=== PATIENT | male | born 1990 | race African-American/Black ===

== ENCOUNTER 2019-12-31 09:38 | Emergency (ER) | payer OTHER ==
[~2019-12-31] VITALS: Ht 182.9 cm; Wt 118.2 kg
[2019-12-31] MEDS ORDERED: IV NORMAL SALINE 1,000ML 1,000 ML IV SCH (09:55)
[2019-12-31] MEDS ORDERED: ONDANSETRON PF 4 MG/2 ML VIAL. IVP ONE (10:00)
[2019-12-31] MEDS ORDERED: ONDANSETRON PF 4 MG/2 ML VIAL. ONE (10:00)
--- NOTE | 2019-12-31 10:00 | PHYS DOC ---
Adult General Chief Complaint Chief Complaint: WEAKNESS/GENERALIZED HPI HPI Patient is a 29-year-old male who presents with complaint of abdominal pain with nausea and vomiting. Patient is also had loose stools. Patient states that symptoms started yesterday morning. He states that the abdominal pain actually started this morning at about 4 AM. Currently rates the pain is mild but states that earlier it was much worse. Patient does indicate that he had been drinking on night. He denies any chest pain or shortness breath. Patient also indicates that he has had some cramping in his muscles. Patient denies any fever.[] Review of Systems Review of Systems Constitutional: Denies fever or chills [] Respiratory: Denies cough or shortness of breath [] Cardiovascular: No additional information not addressed in HPI [] GI: Complains of abdominal pain with nausea, vomiting and diarrhea [] Integument: Denies rash or skin lesions [] Neurologic: Denies headache, focal weakness or sensory changes [] All other systems were reviewed and found to be within normal limits, except as documented in this note. Physical Exam Physical Exam Constitutional: Well developed, well nourished, no acute distress, non-toxic appearance. [] HENT: Normocephalic, atraumatic, bilateral external ears normal, oropharynx moist, no oral exudates, nose normal. [] Eyes: PERRLA, EOMI, conjunctiva normal, no discharge. [] Neck: Normal range of motion, no tenderness, supple. [] Cardiovascular: Regular rate and rhythm[] Lungs & Thorax: Bilateral breath sounds clear to auscultation [] Abdomen: Bowel sounds normal, soft, with mild epigastric tenderness. [] Skin: Warm, dry, no erythema, no rash. [] Extremities: No tenderness, no cyanosis, no clubbing, ROM intact, no edema. [] Neurologic: Alert and oriented X 3, no focal deficits noted. [] EKG EKG [] Radiology/Procedures Radiology/Procedures [] Course & Med Decision Making Course & Med Decision Making Pertinent Labs and Imaging studies reviewed. (See chart for details) [] Dragon Disclaimer Dragon Disclaimer This electronic medical record was generated, in whole or in part, using a voice recognition dictation system. Departure Departure: Impression: Primary Impression: Gastroenteritis Disposition: 01 HOME, SELF-CARE Condition: STABLE Referrals: PCP,NO (PCP) Patient Instructions: Viral Gastroenteritis Scripts Ondansetron (ONDANSETRON ODT) 4 Mg Tab.rapdis 1 TAB PO PRN Q6-8HRS PRN for NAUSEA, #12 TAB Prov: SHIV MITCHELL Jr. DO 12/31/19 Diphenoxylate Hcl/Atropine (LOMOTIL TABLET) 1 Each Tablet 1 TAB PO TID PRN for DIARRHEA, #15 TAB Prov: SHIV MITCHELL Jr. DO 12/31/19 SHIV MITCHELL Jr. DO Dec 31, 2019 10:00
[2019-12-31 10:14] VITALS: BP 129/72
[2019-12-31 10:24] LABS: BASO # 0.1 x10^3/uL (0.0-0.2); BASO % 1 % (0-3); EOS # 0.6 x10^3/uL (0.0-0.7); EOS % 6 % (0-3); HEMATOCRIT 41.9 % (39.0-53.0); HEMOGLOBIN 14.6 g/dL (13.0-17.5); LYMPH # 1.4 x10^3/uL (1.0-4.8); LYMPH % 14 % (24-48); MEAN CORPUSCULAR HEMOGLOBIN 31 pg (25-35); MEAN CORPUSCULAR HGB CONC 35 g/dL (31-37); MEAN CORPUSCULAR VOLUME 89 fL (79-100); MONO # 0.7 x10^3/uL (0.0-1.1); MONO % 7 % (0-9); NEUT # 7.5 x10^3uL (1.8-7.7); NEUT % 73 % (31-73); PLATELET COUNT 263 x10^3/uL (140-400); RED BLOOD COUNT 4.71 x10^6/uL (4.30-5.70); RED CELL DISTRIBUTION WIDTH 14.1 % (11.5-14.5); WHITE BLOOD COUNT 10.3 x10^3/uL (4.0-11.0)
[2019-12-31 10:53] LABS: CALCIUM 8.9 mg/dL (8.5-10.1); GFR 106.2; POTASSIUM 3.9 mmol/L (3.5-5.1)
[2019-12-31 11:00] LABS: ALBUMIN 3.7 g/dL (3.4-5.0); ALBUMIN/GLOBULIN RATIO 1.2 (1.0-1.7); MAGNESIUM 1.6 mg/dL (1.8-2.4); TOTAL BILIRUBIN 0.5 mg/dL (0.2-1.0); TOTAL PROTEIN 6.8 g/dL (6.4-8.2)
[2019-12-31] MEDS ORDERED: DIPH1TAB PO (11:45)
[2019-12-31] MEDS ORDERED: ONDA4TAB12 PO (11:45)
== END 2019-12-31 12:00 | disposition home or self-care (01) ==
LOC: ER 09:38
DX: K52.9 Noninfective gastroenteritis and colitis, unspecified (principal)
CPT/HCPCS: 36415; 80053; 83690; 83735; 85025; 96361; 96374; 99283; J2405; J7030

== ENCOUNTER 2020-07-27 17:15 | Emergency (ER) | payer OTHER ==
[~2020-07-27] VITALS: Ht 182.9 cm; Wt 118.2 kg
[~2020-07-27 17:15] MED LIST: DIPH1TAB PO; ONDA4TAB12 PO
--- NOTE | 2020-07-27 17:45 | EKG ---
[facility] [address] [place] [id number] Test Date: 2020-07-27 Test Time: 17:35:35 Pat Name: DONOVAN SAMS Department: Room: Gender: M Tutoring Assistant: : 1990 Requested By: ADEN LARSON Order Number: [id number] Reading MD: Gerhard Torrez MD Measurements Intervals [place] Rate: 90 P: 60 NM: 146 QRS: 65 QRSD: 90 T: 41 QT: 322 QTc: 398 Interpretive Statements SINUS RHYTHM Electronically Signed On 07-29-2020 14:14:31 CDT by Gerhard Torrez MD
--- NOTE | 2020-07-27 17:54 | PHYS DOC ---
Past History Past Medical History: Anemia, Asthma Past Surgical History: No Surgical History Smoking: Cigarettes Alcohol Use: Occasionally General Adult EDM: Chief Complaint: SHORTNESS OF BREATH HPI: HPI: ".. I got a lot more wheezing.. I get break out wheezing every time the seasons change... or when I am exposed to cinnamon at work.... 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 Usually when I get this bad I have to take steroids.".." I have had 3- COVID tests".. Patient is a 29 year old male who presents with above hx and complaints of dyspnea,, wheezing, nasal drainage, and a nonproductive cough. Patient denies any recent travel outside the [facility]. No specific ill contacts. Patient reportedly has had 3- COVID test for his workplace. Patient works at [email or web address] here in [facility]. No history of fever or chills. Does have asthma exacerbations with every season change. Patient does not know his best peak flow. Has never been intubated for his asthma. Did have recent frequent asthma attacks when he was a child in which she was admitted overnight either at [place] or at [facility]. Patient denies any immunosuppression. Patient does smoke occasionally. Patient last seen in the emergency room on 12/31/2019 for gastroenteritis. Review of Systems: Review of Systems: Constitutional: Denies fever or chills Eyes: Denies change in visual acuity HENT: Denies nasal congestion or sore throat Respiratory: Complaints of non-productive cough and wheezing Cardiovascular: Denies chest pain or edema GI: Denies abdominal pain, nausea, vomiting, bloody stools or diarrhea : Denies dysuria Musculoskeletal: Denies back pain or joint pain Integument: Denies rash Neurologic: Denies headache, focal weakness or sensory changes Endocrine: Denies polyuria or polydipsia Lymphatic: Denies swollen glands Psychiatric: Denies depression or anxiety Heart Score: HEART Score for Chest Pain: HEART Score for Chest Pain Response (Comments) Value History Slighlty/Non-Suspicious 0 ECG Normal 0 Age < 45 0 Risk Factors No Risk Factors 0 Troponin < Normal Limit 0 Total 0 Risk Factors: Risk Factors: DM, Current or recent (<one month) smoker, HTN, HLP, family his tory of CAD, obesity. Risk Scores: Score 0 - 3: 2.5% MACE over next 6 weeks - Discharge Home Score 4 - 6: 20.3% MACE over next 6 weeks - Admit for Clinical Observation Score 7 - 10: 72.7% MACE over next 6 weeks - Early Invasive Strategies Family History: Family History: Noncontributory to presentation Current Medications: Current Meds: See nursing for home meds Allergies: Allergies: Allergies Coded Allergies Type Severity Reaction Last Updated Verified Penicillins Allergy Unknown 07/27/20 Yes Physical Exam: PE: Constitutional: Well developed, well nourished, no acute distress, non-toxic appearance. [] HENT: Normocephalic, atraumatic, bilateral external ears normal, oropharynx moist, mild postnasal drainage, no oral exudates, nose mild turbinate injection with clear rhinorrhea. Eyes: PERRLA, EOMI, conjunctiva normal, no discharge. [] Neck: Normal range of motion, no tenderness, supple, no stridor. [] Cardiovascular: Tachycardia heart rate regular rhythm, no murmur [] Lungs & Thorax: Bilateral breath sounds equal apex with scattered wheezes throughout on auscultation []. The pt. has no intercostal retractions. Abdomen: Bowel sounds normal, soft, no tenderness, no masses, no pulsatile masses. [] Skin: Warm, dry, no erythema, no rash. [] Back: No tenderness, no CVA tenderness. [] Extremities: No tenderness, no cyanosis, no clubbing, ROM intact, no edema. No cording appreciated Neurologic: Alert and oriented X 3, normal motor function, normal sensory function, no focal deficits noted. [] Psychologic: Affect anxious, , judgement normal, mood normal. [] Current Patient Data: Vital Signs: Vital Signs Date Time Temp Pulse Resp B/P (MAP) Pulse Ox O2 Delivery O2 Flow Rate FiO2 07/27/20 17:15 98.1 100 18 185/109 (134) 97 Room Air EKG: EKG: My interpretation EKG shows a sinus rhythm at 90 bpm. No findings of acute morphology. Does have J-point elevation in V2 3 and 4. But no contralateral changes. [] Radiology/Procedures: Radiology/Procedures: [][address] [address] IMAGING REPORT Signed PATIENT: DONOVAN SAMS VACCOUNT: [id number] : 1990 LOCATION: ER AGE: 29 SEX: M EXAM STATUS: REG ER ORD. PHYSICIAN: ADEN LARSON DO REASON: SOB PROCEDURE: CHEST AP ONLY Exam: Chest one view INDICATION: Shortness of breath TECHNIQUE: Frontal view of the chest Comparisons: None FINDINGS: The cardiomediastinal silhouette and pulmonary vessels are within normal limits. The lung and pleural spaces are clear. IMPRESSION: No acute cardiopulmonary process. Electronically signed by: Catie Manriquez MD (07/27/2020 5:50 PM) [id number] DICTATED AND SIGNED BY: CATIE MANRIQUEZ MD DATE: 07/27/20 175 CC: ADEN LARSON DO; TATUM HUIZAR MD; PCP,RAVINDRA ~ Course & Med Decision Making: Course & Med Decision Making Pertinent Labs and Imaging studies reviewed. (See chart for details) My interpretation of the x-ray shows a possible foreign body in the right upper mid abdomen film of chest. My interpretation chest x-ray shows some hyperexpansion. Heart borders are sharp. No obvious large localized infiltrate. Patient take Tylenol and ibuprofen for discomfort. Patient use Benadryl 2550 mg 4 times a day for nasal drainage and cough. Patient take prednisone 50 mg a day. Patient use Ventolin inhaler 2 puffs 4 times a day. Patient follow-up primary care. Patient encouraged not smoke. Patient return if any concerns. Impression: 1. Asthma exacerbation 2. Seasonal allergies 3. History of 3- COVID test-for his work 4. Mild anemia 10.4 hemoglobin [] Dragon Disclaimer: Dragon Disclaimer: This electronic medical record was generated, in whole or in part, using a voice recognition dictation system. Departure Departure: Disposition: 01 DC HOME SELF CARE/HOMELESS Condition: STABLE Referrals: PCPRAVINDRA (PCP) Scripts Prednisone (PREDNISONE) 50 Mg Tablet 50 MG PO DAILY for asthma for 5 Days, #5 TAB Prov: TATUM HUIZAR MD 07/27/20 Yamilet Disclaimer This chart was dictated in whole or in part using Voice Recognition software in a busy, high-work load, and often noisy Emergency Department environment. It may contain unintended and wholly unrecognized errors or omissions. Dragon Disclaimer This chart was dictated in whole or in part using Voice Recognition software in a busy, high-work load, and often noisy Emergency Department environment. It may contain unintended and wholly unrecognized errors or omissions. TATUM HUIZAR MD Jul 27, 2020 17:54
[2020-07-27 18:13] LABS: BASO # 0.1 x10^3/uL (0.0-0.2); BASO % 1 % (0-3); EOS # 0.6 x10^3/uL (0.0-0.7); EOS % 9 % (0-3); HEMATOCRIT 41.6 % (39.0-53.0); HEMOGLOBIN 14.2 g/dL (13.0-17.5); LYMPH # 0.9 x10^3/uL (1.0-4.8); LYMPH % 15 % (24-48); MEAN CORPUSCULAR HEMOGLOBIN 30 pg (25-35); MEAN CORPUSCULAR HGB CONC 34 g/dL (31-37); MEAN CORPUSCULAR VOLUME 89 fL (79-100); MONO # 0.6 x10^3/uL (0.0-1.1); MONO % 10 % (0-9); NEUT % 64 % (31-73); PLATELET COUNT 222 x10^3/uL (140-400); RED BLOOD COUNT 4.69 x10^6/uL (4.30-5.70); RED CELL DISTRIBUTION WIDTH 13.4 % (11.5-14.5); WHITE BLOOD COUNT 6.2 x10^3/uL (4.0-11.0)
[2020-07-27] MEDS ORDERED: ALBUTEROL SULFATE 8GM INHALER. INH ONE (18:15)
[2020-07-27] MEDS ORDERED: predniSONE 10 MG TABLET PO ONE (18:15)
[2020-07-27] MEDS ORDERED: diphenhydrAMINE HCL 25 MG CAPSULE PO ONE (18:15)
[2020-07-27 18:17] LABS: CALCIUM 9.8 mg/dL (8.5-10.1); CREATININE 1.2 mg/dL (0.7-1.3); POTASSIUM 4.1 mmol/L (3.5-5.1)
[2020-07-27 18:22] LABS: ALBUMIN 3.9 g/dL (3.4-5.0); ALBUMIN/GLOBULIN RATIO 1.3 (1.0-1.7); TOTAL BILIRUBIN 0.9 mg/dL (0.2-1.0)
[2020-07-27 18:27] LABS: CLARITY,URINE HAZY; COLOR,URINE AMBER
[2020-07-27 18:28] LABS: BACTERIA,URINE FEW /HPF (0-FEW); BILIRUBIN,URINE NEG (NEG); GLUCOSE,URINE NEG (NEG); NITRITE,URINE POS (NEG); RBC,URINE RARE /HPF (0-2); SQUAMOUS EPITHELIAL CELL,UR FEW /LPF
[2020-07-27] MEDS ORDERED: PRED50TA PO (18:31)
[2020-07-27 19:00] VITALS: BP 141/103
--- NOTE | 2020-07-27 19:26 | RAD ---
LATERAL CHEST Clinical Indication: Reason: lateral view for foreign body / Spl. Instructions: CARMELLA FOUND ON BACK- POST LATERAL VIEW X RAY / History: Comparison: AP chest, earlier same day. Findings: The round metallic density is external to the patient and is along the back, right of midline. There is no pleural effusion. Thoracic spine alignment is maintained. IMPRESSION: Metallic density is external to the patient. Electronically signed by: Cristiano Marin MD (07/27/2020 7:23 PM) [facility]
== END 2020-07-27 19:10 | disposition home or self-care (01) ==
LOC: ER 17:15
DX: J45.901 Unspecified asthma with (acute) exacerbation (principal); J30.2 Other seasonal allergic rhinitis; D64.9 Anemia, unspecified; F17.210 Nicotine dependence, cigarettes, uncomplicated; Z86.2 Personal history of diseases of the blood and blood-forming organs and certain disorders involving the immune mechanism; Z88.0 Allergy status to penicillin
CPT/HCPCS: 36415; 71045; 80053; 81001; 84484; 85025; 87086; 93005; 94640; 99285; G0238; J7512; J7613; Q0163; 94664

== ENCOUNTER 2020-12-29 07:39 | Emergency (ER) | payer OTHER ==
[~2020-12-29] VITALS: Ht 182.9 cm; Wt 118.2 kg
[~2020-12-29 07:39] MED LIST changes: +PRED50TA PO
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
[2020-12-29] MEDS ORDERED: MORPHINE SULFATE 4 MG/ML DISP.SYRIN. IV ONE (09:15)
[2020-12-29] MEDS ORDERED: IV NORMAL SALINE 1,000ML 1,000 ML IV ONE (09:15)
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
[2020-12-29 10:04] LABS: BASO % 0 % (0-3); EOS # 0.1 x10^3/uL (0.0-0.7); EOS % 1 % (0-3); HEMOGLOBIN 13.5 g/dL (13.0-17.5); LYMPH # 1.6 x10^3/uL (1.0-4.8); LYMPH % 12 % (24-48); MEAN CORPUSCULAR HEMOGLOBIN 31 pg (25-35); MEAN CORPUSCULAR HGB CONC 35 g/dL (31-37); MEAN CORPUSCULAR VOLUME 88 fL (79-100); MONO # 1.1 x10^3/uL (0.0-1.1); MONO % 8 % (0-9); NEUT # 10.7 x10^3uL (1.8-7.7); NEUT % 79 % (31-73); PLATELET COUNT 258 x10^3/uL (140-400); RED BLOOD COUNT 4.42 x10^6/uL (4.30-5.70); RED CELL DISTRIBUTION WIDTH 13.8 % (11.5-14.5); WHITE BLOOD COUNT 13.5 x10^3/uL (4.0-11.0)
[2020-12-29 10:09] LABS: CALCIUM 8.9 mg/dL (8.5-10.1); CREATININE 1.1 mg/dL (0.7-1.3); GFR 94.5; POTASSIUM 4.1 mmol/L (3.5-5.1)
[2020-12-29 10:28] VITALS: BP 145/89
== END 2020-12-29 10:50 | disposition short-term general hospital (02) ==
LOC: ER 07:39
DX: S02.609B Fracture of mandible, unspecified, initial encounter for open fracture (principal); M25.561 Pain in right knee; M54.2 Cervicalgia; R51.9 Headache, unspecified; J45.909 Unspecified asthma, uncomplicated; F17.210 Nicotine dependence, cigarettes, uncomplicated; Z88.0 Allergy status to penicillin; Y04.0XXA Assault by unarmed brawl or fight, initial encounter; Y93.89 Activity, other specified; Y92.89 Other specified places as the place of occurrence of the external cause; Y99.8 Other external cause status
CPT/HCPCS: 36415; 70450; 70486; 72125; 73564; 80048; 85025; 85610; 85730; 96361; 96374; 99285; G0480; J2270; J7030